=== PATIENT | female | born 1945 | race Caucasian/White ===

== ENCOUNTER 2019-12-13 09:00 | Inpatient (IN) | payer MEDICARE, BC ==
--- NOTE | 2019-12-13 10:01 | PCM.HP.2 ---
H&P History of Present Illness - General Date of Service: 12/13/19 Admit Problem/Dx: Admission Diagnosis/Problem Admission Diagnosis/Problem Pain and swelling of right lower leg - History of Present Illness Initial Comments - Free Text/Narative: June is admitted on 12/13/2019 to inpatient status after being evaluated in the clinic for extreme RLE pain and swelling and inability to bear weight. She did fall on 11/28/2019 and had some hip pain, however x-ray was negative and her foot and ankle were not bothering her at that time. She notes that 2 days ago she had what felt like a severe bull horse in her right foot "that went from my toes to my ankle and up here" and she points to her lateral lower right leg. She tried using lidocaine cream and Blue Emu oil on it in additional to her hydrocodone for her chronic back pain as well as ibuprofen and nothing helped. It is currently so painful she is not even able to bear weight on the right foot. She arrived to the clinic in a wheelchair. She does not recall any injury to the ankle after her fall in November. She does have a remote hx of gout. She has peripheral neuropathy but states this feels much different than that. She had been drinking a lot of water in the event she was dehydrated and that did not help. The pain is a sharp pain. Her is about to go to [facility] for his 96 hour continues chemotherapy infusion and she states "I can't be at home alone". Her children are wondering about ruling out a DVT. Right Lower Leg Pain Score (Numeric/FACES): 7 - Related Data Allergies/Adverse Reactions: Allergies Allergy/AdvReac Type Severity Reaction Status Date / Time clindamycin Allergy Rash Verified 12/13/19 12:55 Penicillins Allergy Cannot Verified 12/13/19 12:55 Remember oxycodone AdvReac Mild Dizziness Verified 12/13/19 12:55 Home Medications: Home Meds Albuterol [Proventil HFA] 2 puff INH Q4H PRN 09/04/13 [History] Aspirin [Mimi Chewable] 81 mg PO DAILY 09/04/13 [History] Baclofen 10 mg PO TID PRN 09/04/13 [History] Clopidogrel Bisulfate [Clopidogrel] 75 mg PO BEDTIME 09/04/13 [History] Lactobacillus 3/Fos/Pantethine [Probiotic & Acidophilus] 2 cap PO DAILY 09/04/13 [History] Losartan/Hydrochlorothiazide [Losartan-HCTZ 100-12.5 MG] 1 each PO DAILY 09/04/13 [History] Polyvinyl Alcohol/Povidone [Refresh Eye Drops] 1 each EYEBOTH Q6HR PRN 09/04/13 [History] metFORMIN [Glucophage] 500 mg PO BIDAC 09/04/13 [History] Acetaminophen/HYDROcodone [Baldwin 325-10 MG] 1 tab PO Q6H PRN #30 tablet 05/18/14 [Rx] Budesonide/Formoterol Fumarate [Symbicort 160-4.5 Mcg Inhaler] 2 puff INH BID 12/13/19 [History] Cyanocobalamin (Vitamin B12) [Vitamin B12] 1 tab PO DAILY 12/13/19 [History] Cyclobenzaprine HCl 10 mg PO TID PRN 12/13/19 [History] Fluticasone Propionate [Flonase Allergy Relief] 2 sprays NASBOTH BID PRN 12/13/19 [History] Furosemide [Lasix] 20 mg PO BID PRN 12/13/19 [History] Gabapentin [Neurontin] 300 mg PO TID 12/13/19 [History] Levothyroxine Sodium [Synthroid] 25 mcg PO ACBREAKFAST 12/13/19 [History] Montelukast [Singulair] 1 tab PO BEDTIME 12/13/19 [History] atorvaSTATin Calcium [Atorvastatin Calcium] 40 mg PO BEDTIME 12/13/19 [History] Past Medical History Respiratory History: Reports: Asthma, COPD Gastrointestinal History: Reports: Other (See Below) (Colostomy) Musculoskeletal History: Reports: Back Pain, Chronic Neurological History: Reports: Neuropathy, Peripheral, Other (See Below) (Neuralgia of abdomen) Endocrine/Metabolic History: Reports: Diabetes, Type II, Hypothyroidism - Past Surgical History Female Surgical History: Reports: Hysterectomy Musculoskeletal Surgical History: Reports: Knee Replacement Other Musculoskeletal Surgeries/Procedures:: L knee H&P Review of Systems - Review of Systems: Review Of Systems: Comprehensive ROS is negative, except as noted in HPI. Exam - Exam Exam: See Below - Exam Quality Assessment: Supplemental Oxygen General: Alert, Oriented, Cooperative, Moderate Distress Lungs: Clear to Auscultation, Normal Respiratory Effort Cardiovascular: Regular Rate, Regular Rhythm GI/Abdominal Exam: Normal Bowel Sounds Extremities: Other (She is exquisitely tender over the top of her foot with even mild palpation, more so over the lateral aspect of the foot. She has swelling of her foot and ankle on the right compared to the left. No erythema or warmth.) - Patient Data Lab Results Last 24 hrs: Laboratory Results - last 24 hr 12/13/19 Range/Units 09:25 WBC 6.11 (5.00-10.00) 10^3/uL RBC 4.85 (3.80-5.50) 10^6/uL Hgb 15.4 D (12.0-16.0) g/dL Hct 46.3 (37.0-47.0) % MCV 95.5 H D (82.0-92.0) fL MCH 31.8 H (27.0-31.0) pg MCHC 33.3 (32.0-36.0) g/dL RDW 12.1 (11.5-14.5) % Plt Count 218 (150-400) 10^3/uL MPV 9.5 (7.4-10.4) fL Immature Gran % (Auto) 0.2 (0.0-5.0) % Neut % (Auto) 58.1 (50.0-70.0) % Lymph % (Auto) 31.6 (20.0-40.0) % [place] % (Auto) 8.3 H (2.0-8.0) % Eos % (Auto) 1.3 (1.0-3.0) % Baso % (Auto) 0.5 (0.0-1.0) % Neut # (Auto) 3.55 (2.50-7.00) 10^3/uL Lymph # (Auto) 1.93 (1.00-4.00) 10^3/uL [place] # (Auto) 0.51 (0.10-0.80) 10^3/uL Eos # (Auto) 0.08 L (0.10-0.30) 10^3/uL Baso # (Auto) 0.03 (0.00-0.10) 10^3/uL Immature Gran # (Auto) 0.01 (0.00-0.50) 10^3/uL Result Diagrams: 12/13/19 09:25 12/13/19 09:25 Problem List Initiated/Reviewed/Updated: Yes Orders Last 24hrs: Active Orders 24 hr Category Date Time Status Patient Status [ADT] Routine ADT 12/13/19 09:51 Active Blood Glucose Check, Bedside [RC] BIDMEALS Care 12/13/19 09:51 Active Oxygen Therapy [RC] PRN Care 12/13/19 09:51 Active Up With Assistance [RC] ASDIRECTED Care 12/13/19 09:51 Active VTE/DVT Education [RC] PER UNIT ROUTINE Care 12/13/19 09:51 Active Vital Signs [RC] Q4H Care 12/13/19 09:51 Active [place] [employer] Diet [DIET] Diet 12/13/19 Lunch Active Ankle Min 3V Rt [CR] Routine Exams 12/13/19 Ordered Foot Comp Min 3V Rt [CR] Routine Exams 12/13/19 Ordered C-REACTIVE PROTEIN [CHEM] Routine Lab 12/13/19 09:25 Received COMPREHENSIVE METABOLIC PN,CMP [CHEM] Routine Lab 12/13/19 09:25 Received MAGNESIUM [CHEM] Routine Lab 12/13/19 09:25 Received SED RATE [REF] Routine Lab 12/13/19 09:25 Received URIC ACID [CHEM] Routine Lab 12/13/19 09:25 Received Enoxaparin [Lovenox] Med 12/13/19 10:00 Ordered 40 mg SUBCUT DAILY Morphine Med 12/13/19 09:51 Active 2 mg IVPUSH Q2H PRN methylPREDNISolone Sod Succ [Solu-MEDROL] Med 12/13/19 10:00 Active 80 mg IVPUSH Q8H Resuscitation Status Routine Resus Stat 12/13/19 09:51 Ordered Medication Orders Enoxaparin Sodium (Lovenox) 40 mg SUBCUT DAILY KESHIA Methylprednisolone Sodium Succinate (Solu-Medrol) 80 mg IVPUSH Q8H KESHIA Morphine Sulfate (Morphine) 2 mg IVPUSH Q2H PRN PRN Reason: Pain (severe 7-10) Assessment/Plan Comment:: Assessment/Plan: Admission diagnosis: Severe pain and swelling of the right lower extremity, primarily involving the right foot and ankle - x-ray of the R foot - x-ray of the right ankle - venous doppler U/S RLE to rule out DVT - Morphine 2 mg IV q 2 hours PRN pain as oral hydrocodone is not helping - solumedrol 80 mg IV TID Elevated uric acid level at 8.0 with hx of gout in the past - solumedrol as noted above - start allopurinol 100 mg PO daily Elevated CRP - 8.1 on 12/13/2019 - Steroids as noted above, will monitor daily Hypomagnesemia - Magnesium sulfate 2 gram IV 12/12 - recheck magnesium level on 12/13 Secondary Diagnoses: Asthma - Continue Symbicort 160-4.5 mcg/ACT, 2 puffs BID Chronic back pain - Continue hydrocodone/APAP 10/325 mg tabs 1 tab PO q 6 hours PRN pain COPD - Continue Symbicort as above - Continue O2 at 2L/nc to keep sate >90% Colostomy status DM2 - Continue metformin ER 500 mg PO BID - BID accuchecks - Will initiate sliding scale insulin if BG's elevate due to steroid use - A1C was 5.7 12/13/2019 Gait instability - Continue with walker as tolerated with weight bearing - Up with assistance Hx Gout - Uric acid level Hyperlipidemia - Continue atorvastatin 40 mg PO daily HTN - Continue HCTZ 12.5 mg PO daily - Continue losartan 100 mg PO daily - BP's elevated currently, likely secondary to pain Hypothyroidism - Continue levothyroxine 25 mcg PO daily Neuralgia - Lidocaine 4% cream topically to affected areas TID PRN Neuropathy - Continue gabapentin 300 mg PO TID RODRIGO Peripheral edema - Continue furosemide 20 mg PO BID PRN Muscle spasm - Continue cyclobenzaprine 10 mg PO tID PRN Seasonal allergies - Continue Singulair 10 mg PO qhs - Continue fluticasone 50 mg/ACT 2 [place] in each nostril twice daily Vit B12 deficiency - Continue B12 100 mct PO daily Continue ASA 81 mg PO daily Continue plavix 75 mg PO daily CODE STATUS: DNR/DNI, discussed with patient DVT prophylaxis: Enoxaparin 40 mg subcut daily - Mortality Measure Prognosis:: Good
[2019-12-13 10:04] LABS: HEMOGLOBIN A1C 5.7 % (4.3-5.7)
[2019-12-13 10:26] LABS: ANION GAP 9.6 mmol/L (5-15)
[2019-12-13] MEDS: Enoxaparin 40 MG/0.4 ML Syringe SUBCUT SCH (10:55)
[2019-12-13] MEDS: methylPREDNISolone Sodium Succinate 125 MG/2 ML SDV IVPUSH SCH ×2 (10:57→18:07)
[2019-12-13] MEDS ORDERED: Magnesium Sulfate/Water 2 GM in Premix Bag 1 BAG IV ONE (11:06)
[2019-12-13] MEDS ORDERED: Sodium Chloride 0.9% 100 ML IV SCH (11:15)
[2019-12-13] MEDS: Allopurinol 100 MG Tab PO SCH (11:49)
[2019-12-13] MEDS: Morphine 2 MG/ML SYRINGE IVPUSH PRN ×3 (11:50→21:08)
[2019-12-13] MEDS ORDERED: Carboxymethylcellulose Sodium 0.5% Ophth Soln 15 ML Bottle EYEBOTH PRN (16:32)
[2019-12-13] MEDS ORDERED: Fluticasone Propionate Nasal Spray 16 GM Bottle NASBOTH PRN (16:32)
[2019-12-13] MEDS ORDERED: Cyclobenzaprine 10 MG Tab PO PRN (16:32)
[2019-12-13] MEDS ORDERED: Furosemide 20 MG Tab PO PRN (16:32)
[2019-12-13] MEDS ORDERED: Albuterol 8 GM Inhaler INH PRN (16:32)
[2019-12-13] MEDS: metFORMIN 500 MG Tab PO SCH (18:07)
[2019-12-13] MEDS: Clopidogrel 75 MG Tab PO SCH (21:01)
[2019-12-13] MEDS: atorvaSTATin 40 MG Tab PO SCH (21:01)
[2019-12-13] MEDS: Formoterol/Mometasone 200-5 MCG 8.8 GM Inhaler IH SCH (21:01)
[2019-12-13] MEDS: Gabapentin 300 MG Cap PO SCH (21:01)
[2019-12-13] MEDS: Montelukast 10 MG Tab PO SCH (21:01)
[2019-12-14] MEDS: methylPREDNISolone Sodium Succinate 125 MG/2 ML SDV IVPUSH SCH ×3 (01:49→17:58)
[2019-12-14] MEDS: metFORMIN 500 MG Tab PO SCH ×2 (07:44→17:58)
[2019-12-14] MEDS: Levothyroxine 25 MCG Tab PO SCH (07:44)
[2019-12-14] MEDS: Allopurinol 100 MG Tab PO SCH (08:16)
[2019-12-14] MEDS: Aspirin 81 MG Tab.EC PO SCH (08:16)
[2019-12-14] MEDS: Gabapentin 300 MG Cap PO SCH ×3 (08:16→21:30)
[2019-12-14] MEDS: Losartan 50 MG Tab PO SCH (08:16)
[2019-12-14] MEDS: Hydrochlorothiazide 12.5 MG Cap PO SCH (08:17)
[2019-12-14] MEDS: Lactobacillus Rhamnosus GG (Probiotic) Cap PO SCH (08:17)
[2019-12-14] MEDS: Enoxaparin 40 MG/0.4 ML Syringe SUBCUT SCH (08:19)
[2019-12-14 08:22] LABS: ANION GAP 14.4 mmol/L (5-15); CHLORIDE,CL 97 mmol/L (98-115); SODIUM,NA 138 mmol/L (136-145)
[2019-12-14] MEDS: Formoterol/Mometasone 200-5 MCG 8.8 GM Inhaler IH SCH ×2 (08:34→21:29)
[2019-12-14] MEDS ORDERED: CYANOCOBALAMIN PO SCH (09:00)
--- NOTE | 2019-12-14 11:54 | PN ---
PATIENT NAME: ERICA DEXTER HISTORY OF PRESENT ILLNESS: This is a 74-year-old female who was admitted yesterday to inpatient care due to pain and swelling of her right lower extremity. X-rays were performed which were negative. She did have a venous Doppler ultrasound of the right lower extremity to rule out DVT, which was negative. She has received Solu-Medrol 80 mg IV t.i.d. and morphine for pain. She did have an elevated uric acid level at 8.0 and was started on allopurinol yesterday. CRP was 8.1 on 12/13/2019. She does have hypomagnesemia and was given 2 g of IV magnesium yesterday. The patient states she is feeling much better. The swelling has gone down, however, she still does have some residual swelling of her right lower extremity. LAB WORK: Today, shows a white count of 14,000, normal yesterday. She does have a bit of a left shift. This may be related to the steroids. Her magnesium is normal today at 1.9. C-reactive protein has gone from 8.1 to 10.9. PHYSICAL EXAMINATION: VITAL SIGNS: She is afebrile. Pulse 72, respirations 18, blood pressure is 143/72. SKIN: Warm and dry to touch. HEART AND LUNGS: Normal. She does have mild swelling and exquisite tenderness over the dorsal aspect of her right foot. I did not see the foot yesterday, however, the patient reports it has improved. IMPRESSION AND PLAN: 1. Severe pain and swelling of the right lower extremity, primarily involving the right foot and ankle. X-rays were negative. On admission, venous ultrasound was negative for deep vein thrombosis. She did receive Solu- Medrol 80 mg IV t.i.d. and will continue on the same. She will continue morphine 2 mg IV every 2 hours as needed for pain. 2. Elevated uric acid level, now on allopurinol. 3. Elevated CRP. This has gone up a little bit today and steroids will continue. 4. Hypomagnesemia. Her magnesium is normal today. 5. Asthma, on Symbicort. 6. Chronic low back pain. Continue hydrocodone. 7. Chronic obstructive pulmonary disease. Continue Symbicort and O2 at 2 L per nasal cannula to keep saturations greater than 90%. 8. Colostomy status. 9. Diabetes mellitus type 2, on metformin. We will continue b.i.d. Accu- Cheks. A1c was 5.7 on 12/13/2019. 10.Gait instability. Continue with walker. 11.Hyperlipidemia, continue atorvastatin. 12.Hypertension, on a combination of HCTZ, losartan. 13.Hypothyroidism, on thyroid replacement. 14.Neuralgia, using lidocaine cream. 15.Neuropathy. Continue gabapentin. 16.Peripheral edema. Continue furosemide. 17.Muscle spasm. Continue cyclobenzaprine. 18.Seasonal allergies. Continue Singulair and fluticasone. 19.Vitamin B12 deficiency. Continue oral vitamin B12, continue baby aspirin and Plavix. 20.Code status: DNR/DNI. Documentation was completed today. 21.Deep venous thrombosis prophylaxis, on enoxaparin 40 mg subcu daily. I have updated her PCP, Dr. Loreto Mcnair, regarding her progress. /[id number]/MODL
[2019-12-14] MEDS: Acetaminophen/HYDROcodone 325-10 MG Tab PO PRN ×2 (14:12→21:30)
[2019-12-14] MEDS: atorvaSTATin 40 MG Tab PO SCH (21:30)
[2019-12-14] MEDS: Montelukast 10 MG Tab PO SCH (21:30)
[2019-12-14] MEDS: Clopidogrel 75 MG Tab PO SCH (21:30)
[2019-12-15] MEDS: methylPREDNISolone Sodium Succinate 125 MG/2 ML SDV IVPUSH SCH ×2 (02:26→09:57)
[2019-12-15] MEDS: metFORMIN 500 MG Tab PO SCH (07:17)
[2019-12-15] MEDS: Levothyroxine 25 MCG Tab PO SCH (07:17)
[2019-12-15 07:53] LABS: ANION GAP 9.8 mmol/L (5-15); CHLORIDE,CL 99 mmol/L (98-115); SODIUM,NA 137 mmol/L (136-145)
[2019-12-15] MEDS: Lactobacillus Rhamnosus GG (Probiotic) Cap PO SCH (08:30)
[2019-12-15] MEDS: Gabapentin 300 MG Cap PO SCH (08:30)
[2019-12-15] MEDS: Allopurinol 100 MG Tab PO SCH (08:30)
[2019-12-15] MEDS: Enoxaparin 40 MG/0.4 ML Syringe SUBCUT SCH (08:31)
[2019-12-15] MEDS: Aspirin 81 MG Tab.EC PO SCH (08:31)
[2019-12-15] MEDS: Hydrochlorothiazide 12.5 MG Cap PO SCH (08:32)
[2019-12-15] MEDS: Losartan 50 MG Tab PO SCH (08:32)
[2019-12-15] MEDS: Formoterol/Mometasone 200-5 MCG 8.8 GM Inhaler IH SCH (08:35)
--- NOTE | 2019-12-15 08:49 | PCM.DCSUM1 ---
Discharge Summary - Hospital Course Free Text/Narrative:: Admission Date: 12/13/2019 Discharge Date: 12/15/2019 Admission diagnoses: Severe pain and swelling of the right lower extremity, primarily involving the right foot and ankle, likely an acute gout attack - x-ray of the R foot, negative - x-ray of the right ankle, negative - venous doppler U/S RLE to rule out DVT, negative - Morphine 2 mg IV q 2 hours PRN pain she only required 2 doses, outpatient hydrocodone is currently controlling her pain - solumedrol 80 mg IV TID while inpatient, she will be discharged on prednisone 40 mg x 3 days, 20 mg x 3 days, 10 mg x 3 days, 5 mg x 3 days then off. Elevated uric acid level at 8.0 with hx of gout in the past - solumedrol as noted above - started allopurinol 100 mg PO daily, will be discharged on this and repeat uric acid level in 2 weeks Elevated CRP, improving - 8.1 on 12/13/2019, down to 4.5 at discharge, likely related to underlying inflammatory process that is now improving Hypomagnesemia, resolved - Magnesium sulfate 2 gram IV 12/12, magnesium 1.8 at discharge, no supplementation at this time, will monitor as an outpatient Secondary Diagnoses: Steroid induced leukocytosis - will check CBC in 2 weeks Asthma - Continue Symbicort 160-4.5 mcg/ACT, 2 puffs BID Chronic back pain - Continue hydrocodone/APAP 10/325 mg tabs 1 tab PO q 6 hours PRN pain COPD - Continue Symbicort as above - Continue O2 at 2L/nc to keep sate >90% Colostomy status DM2 - Continue metformin ER 500 mg PO BID - A1C was 5.7 12/13/2019 Gait instability - Continue with walker as tolerated with weight bearing Hx Gout - Uric acid level elevated, discharging on allopurinol 100 mg PO daily Hyperlipidemia - Continue atorvastatin 40 mg PO daily HTN - Continue HCTZ 12.5 mg PO daily - Continue losartan 100 mg PO daily Hypothyroidism - Continue levothyroxine 25 mcg PO daily Neuralgia - Lidocaine 4% cream topically to affected areas TID PRN Neuropathy - Continue gabapentin 300 mg PO TID RODRIGO Peripheral edema - Continue furosemide 20 mg PO BID PRN Muscle spasm - Continue cyclobenzaprine 10 mg PO TID PRN Seasonal allergies - Continue Singulair 10 mg PO qhs - Continue fluticasone 50 mg/ACT 2 [place] in each nostril twice daily Vit B12 deficiency - Continue B12 100 mct PO daily Continue ASA 81 mg PO daily Continue plavix 75 mg PO daily CODE STATUS: DNR/DNI, discussed with patient New Medications at Discharge: Prednisone taper as noted above, this will be sent through her clinic chart to [facility]. Allopurinol 100 mg PO daily Follow-up with Dr. Mcnair in clinic in 2 weeks. Hospital Course: June was admitted on 12/13/2019 to inpatient status after being evaluated in the clinic for extreme RLE pain and swelling and inability to bear weight. She did fall on 11/28/2019 and had some hip pain, however x-ray was negative and her foot and ankle were not bothering her at that time. She notes that 2 days ago she had what felt like a severe bull horse in her right foot "that went from my toes to my ankle and up here" and she points to her lateral lower right leg. She tried using lidocaine cream and Blue Emu oil on it in additional to her hydrocodone for her chronic back pain as well as ibuprofen and nothing helped. It is currently so painful she is not even able to bear weight on the right foot. She arrived to the clinic in a wheelchair. She does not recall any injury to the ankle after her fall in November. She does have a remote hx of gout. She has peripheral neuropathy but states this feels much different than that. She had been drinking a lot of water in the event she was dehydrated and that did not help. The pain is a sharp pain. Her was about to go to [place] for his 96 hour continues chemotherapy infusion and she states "I can't be at home alone". Labs indicated an elevated uric acid level. It is felt that her pain was related to an acute gout attack. CRP was elevated at 8.1, peaked at 10 and at discharge is 4.5. Solumedrol 80 mg IV TID was initiated as well as morphine for pain control. She required 2 doses of morphine but then states "I started to get a little goofy so thought I better back off of that". She was started on allopurinol 100 mg PO daily and will repeat uric acid level in 2 weeks. She did develop a steroid induced leukocytosis and her CBC will be checked in 2 weeks. She will be discharged on a prednisone taper. She is able to bear weight, she has some minimal residual pain on the top of her foot on the right. The swelling is nearly gone from her foot and ankle. She is ambulatory with her walker and feels safe to discharge to home and has her daughter from [place] in [facility] who will be staying with her until her Angel is done with his chemotherapy. Diagnosis: Stroke: No Modified Med Scale: No Signif.Disability Despite Sympt.Able to Carry Out Usual Act./Duties Modified [place] Scale Score: 1 - Discharge Data Discharge Date: 12/15/19 Discharge Disposition: Home, Self-Care 01 Condition: Good - Referral to Home Health Primary Care Physician: Loreto Perez MD - Patient Summary/Data Recommended Follow-up Testing/Procedures: Follow-up with Dr. Mcnair in 2 weeks and will get CBC, BMP and uric acid level. New Medications at discharge: Prednisone 40 mg daily x 3 days, then 20 mg daily x 3 days, then 10 mg daily x 3 days then 5 mg daily x 3 days Allopurinol 100 mg daily - Patient Instructions Diet: Diabetic Diet Activity: As Tolerated - Discharge Plan *PRESCRIPTION DRUG MONITORING PROGRAM REVIEWED*: No *COPY OF PRESCRIPTION DRUG MONITORING REPORT IN PATIENT JALEEL: No Prescriptions/Med Rec: allopurinoL [Zyloprim] 100 mg PO DAILY #30 tablet Home Medications: Home Meds Albuterol [Proventil HFA] 2 puff INH Q4H PRN 09/04/13 [History] Aspirin [Mimi Chewable Aspirin] 81 mg PO DAILY 09/04/13 [History] Clopidogrel Bisulfate [Clopidogrel] 75 mg PO BEDTIME 09/04/13 [History] Lactobacillus 3/Fos/Pantethine [Probiotic & Acidophilus] 2 cap PO DAILY 09/04/13 [History] Losartan/Hydrochlorothiazide [Losartan-HCTZ 100-12.5 MG] 1 each PO DAILY 09/04/13 [History] Polyvinyl Alcohol/Povidone [Refresh] 1 each EYEBOTH Q6HR PRN 09/04/13 [History] metFORMIN [Glucophage] 500 mg PO BIDAC 09/04/13 [History] Acetaminophen/HYDROcodone [[place] 325-10 MG] 1 tab PO Q6H PRN #30 tablet 02/06/15 [Rx] Budesonide/Formoterol Fumarate [Symbicort 160-4.5 Mcg Inhaler] 2 puff INH BID 12/13/19 [History] Cyanocobalamin (Vitamin B12) [Vitamin B12] 1 tab PO DAILY 12/13/19 [History] Cyclobenzaprine HCl 10 mg PO TID PRN 12/13/19 [History] Fluticasone Propionate [Flonase Allergy Relief] 2 sprays NASBOTH BID PRN 12/13/19 [History] Furosemide [Lasix] 20 mg PO BID PRN 12/13/19 [History] Gabapentin [Neurontin] 300 mg PO TID 12/13/19 [History] Levothyroxine Sodium [Synthroid] 25 mcg PO ACBREAKFAST 12/13/19 [History] Montelukast [Singulair] 1 tab PO BEDTIME 12/13/19 [History] atorvaSTATin Calcium [Atorvastatin Calcium] 40 mg PO BEDTIME 12/13/19 [History] allopurinoL [Zyloprim] 100 mg PO DAILY #30 tablet 12/15/19 [Rx] - Discharge Summary/Plan Comment DC Time >30 min.: No - General Info Date of Service: 12/15/19 Admission Dx/Problem (Free Text: Admission Diagnosis/Problem Admission Diagnosis/Problem Pain and swelling of right lower leg - Patient Data Vitals - Most Recent: Last Vital Signs Temp 98.6 F 12/15/19 06:26 Pulse 75 12/15/19 06:26 Resp 18 12/15/19 06:26 BP 150/60 H 12/15/19 08:32 Pulse Ox 95 12/15/19 06:26 Weight - Most Recent: 220 lb 11.2 oz I&O - Last 24 hours: Intake & Output 12/14/19 12/15/19 12/15/19 22:59 06:59 14:59 Intake Total 640 50 Balance 640 50 Lab Results - Last 24 hrs: Laboratory Results - last 24 hr 12/14/19 12/15/19 12/15/19 Range/Units 17:57 07:07 07:08 WBC 20.37 H (5.00-10.00) 10^3/uL RBC 4.21 (3.80-5.50) 10^6/uL Hgb 11.7 L (12.0-16.0) g/dL Hct 36.9 L (37.0-47.0) % MCV 87.6 (82.0-92.0) fL MCH 27.8 (27.0-31.0) pg MCHC 31.7 L (32.0-36.0) g/dL RDW 13.7 (11.5-14.5) % Plt Count 279 (150-400) 10^3/uL MPV 11.9 H (7.4-10.4) fL Add Manual Diff Yes Neutrophils % (Manual) 97 H (50-70) % Lymphocytes % (Manual) 2 L (20-40) % Monocytes % (Manual) 1 L (2-8) % Absolute Neutrophils 19.7589 Lymphocytes # (Manual) 0.4074 Monocytes # (Manual) 0.2037 Giant Platelets Occasional Sodium (136-145) mmol/L Potassium (3.3-5.3) mmol/L Chloride (98-115) mmol/L Carbon Dioxide (21.0-32.0) mmol/L Anion Gap (5-15) mmol/L BUN (6-25) mg/dL Creatinine (0.51-1.17) mg/dL Est Cr Clr Drug Dosing mL/min Estimated GFR (MDRD) mL/min Glucose (75 - 99) mg/dL POC Glucose 229 H 211 H (74-106) mg/dl Calcium (8.7-10.3) mg/dL Magnesium (1.8-2.4) mg/dL C-Reactive Protein (0.0-0.9) mg/dL 12/15/19 Range/Units 07:08 WBC (5.00-10.00) 10^3/uL RBC (3.80-5.50) 10^6/uL Hgb (12.0-16.0) g/dL Hct (37.0-47.0) % MCV (82.0-92.0) fL MCH (27.0-31.0) pg MCHC (32.0-36.0) g/dL RDW (11.5-14.5) % Plt Count (150-400) 10^3/uL MPV (7.4-10.4) fL Add Manual Diff Neutrophils % (Manual) (50-70) % Lymphocytes % (Manual) (20-40) % Monocytes % (Manual) (2-8) % Absolute Neutrophils Lymphocytes # (Manual) Monocytes # (Manual) Giant Platelets Sodium 137 (136-145) mmol/L Potassium 3.3 (3.3-5.3) mmol/L Chloride 99 (98-115) mmol/L Carbon Dioxide 31.5 (21.0-32.0) mmol/L Anion Gap 9.8 (5-15) mmol/L BUN 27 H (6-25) mg/dL Creatinine 0.83 (0.51-1.17) mg/dL Est Cr Clr Drug Dosing 45.55 mL/min Estimated GFR (MDRD) > 60 mL/min Glucose 224 H (75 - 99) mg/dL POC Glucose (74-106) mg/dl Calcium 8.7 (8.7-10.3) mg/dL Magnesium 1.8 (1.8-2.4) mg/dL C-Reactive Protein 4.5 H (0.0-0.9) mg/dL Med Orders - Current: Current Medications Hydrocodone Bitart/Acetaminophen ([place] 325-10 Mg) 1 tab PO Q6H PRN PRN Reason: Pain Last Admin: 12/14/19 21:30 Dose: 1 tab Documented by: Albuterol (Ventolin Hfa) 0 gm INH Q4H PRN PRN Reason: Shortness of Breath Allopurinol (Zyloprim) 100 mg PO DAILY [facility] Last Admin: 12/15/19 08:30 Dose: 100 mg Documented by: Artificial Tears (Refresh Tears 0.5%) 0 ml EYEBOTH Q6H PRN PRN Reason: Dry Eyes Aspirin (Halfprin) 81 mg PO DAILY [facility] Last Admin: 12/15/19 08:31 Dose: 81 mg Documented by: Atorvastatin Calcium (Lipitor) 40 mg PO BEDTIME [facility] Last Admin: 12/14/19 21:30 Dose: 40 mg Documented by: Clopidogrel Bisulfate (Plavix) 75 mg PO BEDTIME [facility] Last Admin: 12/14/19 21:30 Dose: 75 mg Documented by: Cyclobenzaprine HCl (Flexeril) 10 mg PO TID PRN PRN Reason: Spasms Enoxaparin Sodium (Lovenox) 40 mg SUBCUT DAILY [facility] Last Admin: 12/15/19 08:31 Dose: 40 mg Documented by: Fluticasone Propionate (Flonase) 0 gm NASBOTH BID PRN PRN Reason: Congestion Furosemide (Lasix) 20 mg PO BID PRN PRN Reason: Other Last Admin: 12/14/19 21:37 Dose: 20 mg Documented by: Gabapentin (Neurontin) 300 mg PO TID [facility] Last Admin: 12/15/19 08:30 Dose: 300 mg Documented by: Hydrochlorothiazide (Hydrochlorothiazide) 12.5 mg PO DAILY [facility] Last Admin: 12/15/19 08:32 Dose: 12.5 mg Documented by: Sodium Chloride (Normal Saline) 100 mls @ 100 mls/hr IV ASDIRECTED [facility] Last Admin: 12/13/19 11:54 Dose: 100 mls/hr Documented by: Lactobacillus Rhamnosus (Culturelle) 2 cap PO DAILY [facility] Last Admin: 12/15/19 08:30 Dose: 2 cap Documented by: Levothyroxine Sodium (Levothyroxine) 25 mcg PO ACBREAKFAST [facility] Last Admin: 12/15/19 07:17 Dose: 25 mcg Documented by: Losartan Potassium (Cozaar) 100 mg PO DAILY [facility] Last Admin: 12/15/19 08:32 Dose: 100 mg Documented by: Metformin HCl (Glucophage) 500 mg PO BIDAC [facility] Last Admin: 12/15/19 07:17 Dose: 500 mg Documented by: Methylprednisolone Sodium Succinate (Solu-Medrol) 80 mg IVPUSH Q8H [facility] Last Admin: 12/15/19 02:26 Dose: 80 mg Documented by: Mometasone Furoate/Formoterol Fumar (Dulera 200-5 Mcg) 0 puff IH BID [facility] Last Admin: 12/15/19 08:35 Dose: 2 inhalation Documented by: Montelukast Sodium (Singulair) 10 mg PO BEDTIME [facility] Last Admin: 12/14/19 21:30 Dose: 10 mg Documented by: Morphine Sulfate (Morphine) 2 mg IVPUSH Q2H PRN PRN Reason: Pain (severe 7-10) Last Admin: 12/13/19 21:08 Dose: 2 mg Documented by: Non-Formulary Medication (Cyanocobalamin (Vitamin B12) [Vitamin B12]) 1 tab PO DAILY [facility] Discontinued Medications Magnesium Sulfate 2 gm/ Premix 50 mls @ 200 mls/hr IV ONETIME ONE Stop: 12/13/19 11:20 Last Admin: 12/13/19 11:57 Dose: 200 mls/hr Documented by: - Exam Quality Assessment: Reports: Supplemental Oxygen General: Reports: Alert, Oriented, Cooperative, No Acute Distress Lungs: Reports: Clear to Auscultation, Normal Respiratory Effort Cardiovascular: Reports: Regular Rate, Regular Rhythm GI/Abdominal Exam: Normal Bowel Sounds Extremities: Pedal Edema (Stable edema, right foot and ankle with marked improvemend in edema.)
[2019-12-15 11:15] VITALS: BP 151/65; PULSE 89
== END 2019-12-15 11:30 | disposition home or self-care (01) | DRG 554 ==
LOC: KA.OC 09:00 → KA.MS 09:05
PROVIDERS: ADMIT Internal Medicine; ATTEND Internal Medicine
DX: M10.9 Gout, unspecified (principal); E83.42 Hypomagnesemia; R26.9 Unspecified abnormalities of gait and mobility; E78.5 Hyperlipidemia, unspecified; Z20.828 Contact with and (suspected) exposure to other viral communicable diseases; Z66 Do not resuscitate; E11.42 Type 2 diabetes mellitus with diabetic polyneuropathy; E03.9 Hypothyroidism, unspecified; I10 Essential (primary) hypertension; M79.2 Neuralgia and neuritis, unspecified; D72.829 Elevated white blood cell count, unspecified; T38.0X5A Adverse effect of glucocorticoids and synthetic analogues, initial encounter; G47.33 Obstructive sleep apnea (adult) (pediatric); R60.0 Localized edema; M62.838 Other muscle spasm; E53.8 Deficiency of other specified B group vitamins; J44.9 Chronic obstructive pulmonary disease, unspecified; Z96.659 Presence of unspecified artificial knee joint; M54.5 Low back pain; G89.29 Other chronic pain; J30.2 Other seasonal allergic rhinitis; Z79.82 Long term (current) use of aspirin; Z79.84 Long term (current) use of oral hypoglycemic drugs; Z79.899 Other long term (current) drug therapy; Z79.890 Hormone replacement therapy; Z88.1 Allergy status to other antibiotic agents; Z88.0 Allergy status to penicillin; Z88.5 Allergy status to narcotic agent; Z90.710 Acquired absence of both cervix and uterus; Z93.3 Colostomy status
CPT/HCPCS: 36415; 73610-RT; 73630-RT; 80048; 80053; 82962; 83036; 83605; 83735; 84550; 85025; 85652; 86140; 93971; 94640; A9270-GY; J1650; J2270; J2930; J3475; J7050; U0002

== ENCOUNTER 2021-09-18 09:08 | Emergency (ER) | payer MEDICARE ==
[2021-09-18 09:57] LABS: ANION GAP 13.4 mmol/L (5-15); CHLORIDE,CL 97 mmol/L (98-107); SODIUM,NA 139 mmol/L (136-145)
[2021-09-18 10:02] LABS: ESTIMATED GFR > 60 mL/min
[2021-09-18] MEDS: Sodium Chloride 0.9% 1,000 ML ONE (10:09)
[2021-09-18] MEDS: Sodium Chloride 0.9% 1,000 ML IV ONE (10:09)
[2021-09-18] MEDS ORDERED: Iopamidol 755 Mg/ML 75 ML Bottle IVPUSH ONE (10:57)
[2021-09-18] MEDS ORDERED: Sodium Chloride 0.9% 50 ML IV SCH (11:00)
[2021-09-18] MEDS: Ciprofloxacin in D5W 400 MG in Premix Bag 1 BAG IV ONE ×2 (11:04)
[2021-09-18 11:12] VITALS: BP 177/81; PULSE 67
== END 2021-09-18 12:00 ==
LOC: KA.ED 09:08
DX: K92.1 Melena (principal); K81.0 Acute cholecystitis; K43.5 Parastomal hernia without obstruction or gangrene; K27.0 Acute peptic ulcer, site unspecified, with hemorrhage; D72.829 Elevated white blood cell count, unspecified; R63.0 Anorexia; J44.9 Chronic obstructive pulmonary disease, unspecified; E03.9 Hypothyroidism, unspecified; E11.9 Type 2 diabetes mellitus without complications; Z79.899 Other long term (current) drug therapy; Z79.82 Long term (current) use of aspirin; Z79.84 Long term (current) use of oral hypoglycemic drugs; Z88.1 Allergy status to other antibiotic agents; Z88.0 Allergy status to penicillin; Z88.5 Allergy status to narcotic agent; Z88.8 Allergy status to other drugs, medicaments and biological substances
CPT/HCPCS: 36415; 74177; 80053; 81001; 82270; 85025; 87040; 87086; 87088; 87186; 96361; 96365; 99284; 99285-25; J0744; J7030; Q9967

== ENCOUNTER 2021-09-23 09:33 | Inpatient (IN) | payer MEDICARE ==
[2021-09-23] MEDS ORDERED: Ondansetron 4 MG Tab.DIS PO PRN (15:21)
[2021-09-23] MEDS ORDERED: Albuterol 8 GM Inhaler INH PRN (15:25)
[2021-09-23] MEDS ORDERED: Carboxymethylcellulose Sodium 0.5% Ophth Soln 15 ML Bottle EYEBOTH PRN (15:25)
[2021-09-23] MEDS: tiZANidine 4 MG Tab PO SCH ×3 (16:08→22:40)
[2021-09-23] MEDS: Acetaminophen/HYDROcodone 325-10 MG Tab PO PRN ×2 (16:08→22:11)
[2021-09-23] MEDS: Cyclobenzaprine 10 MG Tab PO PRN (19:40)
[2021-09-23] MEDS: Formoterol/Mometasone 200-5 MCG 8.8 GM Inhaler IH SCH (22:10)
[2021-09-23] MEDS: Clopidogrel 75 MG Tab PO SCH (22:11)
[2021-09-23] MEDS: Oxybutynin 5 MG Tab.ER PO SCH (22:12)
[2021-09-23] MEDS: Hydrochlorothiazide 25 MG Tab PO SCH (22:22)
[2021-09-23] MEDS: metFORMIN 500 MG Tab.ER PO SCH (22:22)
[2021-09-23] MEDS: atorvaSTATin 40 MG Tab PO SCH (22:23)
[2021-09-23] MEDS: Montelukast 10 MG Tab PO SCH (22:23)
[2021-09-24] MEDS: Pantoprazole 40 MG Tab.CR PO SCH ×2 (06:06→06:31)
[2021-09-24] MEDS: Levothyroxine 25 MCG Tab PO SCH ×2 (06:06→06:31)
[2021-09-24] MEDS: tiZANidine 4 MG Tab PO SCH ×4 (06:06→20:55)
[2021-09-24 07:57] LABS: ANION GAP 7.6 mmol/L (5-15)
[2021-09-24] MEDS: Aspirin 81 MG Tab.Chew PO SCH (08:15)
[2021-09-24] MEDS: Ascorbic Acid 500 MG Tab PO SCH (08:16)
[2021-09-24] MEDS: Zinc (Zinc Gluconate) 50 MG Tab PO SCH (08:16)
[2021-09-24] MEDS: Cholecalciferol (Vitamin D3) 25 MCG Tab PO SCH (08:16)
[2021-09-24] MEDS: Cyanocobalamin (Vitamin B12) 500 MCG Tab PO SCH (08:17)
[2021-09-24] MEDS: Lactobacillus Rhamnosus GG (Probiotic) Cap PO SCH (08:17)
[2021-09-24] MEDS: Gabapentin 100 MG Cap PO SCH (08:17)
[2021-09-24] MEDS: metFORMIN 500 MG Tab.ER PO SCH (08:18)
[2021-09-24] MEDS: Fluticasone NASAL Spray 16 GM Bottle NASBOTH SCH (08:27)
[2021-09-24] MEDS: Formoterol/Mometasone 200-5 MCG 8.8 GM Inhaler IH SCH ×2 (08:27→20:56)
[2021-09-24] MEDS: Losartan 50 MG Tab PO SCH (09:15)
[2021-09-24] MEDS: Tiotropium Bromide 4 GM Inhalation Spray (2.5mcg/1 dose; 10 doses) INH SCH (09:16)
[2021-09-24] MEDS: Hydrochlorothiazide 12.5 MG Cap PO SCH (09:16)
[2021-09-24] MEDS: amLODIPine 5 MG Tab PO SCH (09:16)
[2021-09-24] MEDS: Magnesium Oxide 500 MG Tab PO SCH (09:28)
[2021-09-24] MEDS: Acetaminophen/HYDROcodone 325-10 MG Tab PO PRN ×2 (12:46→20:52)
[2021-09-24] MEDS: Clopidogrel 75 MG Tab PO SCH (20:54)
[2021-09-24] MEDS: atorvaSTATin 40 MG Tab PO SCH (20:54)
[2021-09-24] MEDS: Montelukast 10 MG Tab PO SCH (20:55)
[2021-09-24] MEDS: Oxybutynin 5 MG Tab.ER PO SCH (20:55)
[2021-09-24] MEDS: Hydrochlorothiazide 25 MG Tab PO SCH (20:55)
[2021-09-25] MEDS: tiZANidine 4 MG Tab PO SCH ×6 (00:39→23:04)
[2021-09-25] MEDS: Cyclobenzaprine 10 MG Tab PO PRN (02:00)
[2021-09-25] MEDS: Acetaminophen/HYDROcodone 325-10 MG Tab PO PRN ×2 (04:24→21:13)
[2021-09-25] MEDS: Levothyroxine 25 MCG Tab PO SCH ×2 (06:24→06:31)
[2021-09-25] MEDS: Pantoprazole 40 MG Tab.CR PO SCH ×2 (06:24→06:31)
[2021-09-25] MEDS: Cyanocobalamin (Vitamin B12) 500 MCG Tab PO SCH (08:24)
[2021-09-25] MEDS: Magnesium Oxide 500 MG Tab PO SCH (08:24)
[2021-09-25] MEDS: Cholecalciferol (Vitamin D3) 25 MCG Tab PO SCH (08:25)
[2021-09-25] MEDS: Zinc (Zinc Gluconate) 50 MG Tab PO SCH (08:25)
[2021-09-25] MEDS: Furosemide 20 MG Tab PO PRN (08:25)
[2021-09-25] MEDS: Aspirin 81 MG Tab.Chew PO SCH (08:25)
[2021-09-25] MEDS: Gabapentin 100 MG Cap PO SCH (08:25)
[2021-09-25] MEDS: metFORMIN 500 MG Tab.ER PO SCH (08:25)
[2021-09-25] MEDS: Hydrochlorothiazide 12.5 MG Cap PO SCH (08:26)
[2021-09-25] MEDS: Ascorbic Acid 500 MG Tab PO SCH (08:26)
[2021-09-25] MEDS: Lactobacillus Rhamnosus GG (Probiotic) Cap PO SCH (08:27)
[2021-09-25] MEDS: Tiotropium Bromide 4 GM Inhalation Spray (2.5mcg/1 dose; 10 doses) INH SCH (08:31)
[2021-09-25] MEDS: Fluticasone NASAL Spray 16 GM Bottle NASBOTH SCH (08:31)
[2021-09-25] MEDS: Formoterol/Mometasone 200-5 MCG 8.8 GM Inhaler IH SCH ×2 (08:31→21:15)
[2021-09-25] MEDS: Losartan 50 MG Tab PO SCH (08:37)
[2021-09-25] MEDS: amLODIPine 5 MG Tab PO SCH (08:37)
[2021-09-25] MEDS: Hydrochlorothiazide 25 MG Tab PO SCH (21:14)
[2021-09-25] MEDS: Montelukast 10 MG Tab PO SCH (21:14)
[2021-09-25] MEDS: Clopidogrel 75 MG Tab PO SCH (21:14)
[2021-09-25] MEDS: atorvaSTATin 40 MG Tab PO SCH (21:14)
[2021-09-25] MEDS: Oxybutynin 5 MG Tab.ER PO SCH (21:14)
[2021-09-26] MEDS: Acetaminophen/HYDROcodone 325-10 MG Tab PO PRN (04:15)
[2021-09-26] MEDS: Levothyroxine 25 MCG Tab PO SCH ×2 (06:04→06:34)
[2021-09-26] MEDS: Pantoprazole 40 MG Tab.CR PO SCH ×2 (06:04→06:34)
[2021-09-26] MEDS: tiZANidine 4 MG Tab PO SCH ×4 (06:04→21:48)
[2021-09-26] MEDS: amLODIPine 5 MG Tab PO SCH (08:02)
[2021-09-26] MEDS: Cholecalciferol (Vitamin D3) 25 MCG Tab PO SCH (08:03)
[2021-09-26] MEDS: Ascorbic Acid 500 MG Tab PO SCH (08:03)
[2021-09-26] MEDS: Losartan 50 MG Tab PO SCH (08:03)
[2021-09-26] MEDS: Cyanocobalamin (Vitamin B12) 500 MCG Tab PO SCH (08:03)
[2021-09-26] MEDS: Magnesium Oxide 500 MG Tab PO SCH (08:03)
[2021-09-26] MEDS: Gabapentin 100 MG Cap PO SCH (08:03)
[2021-09-26] MEDS: metFORMIN 500 MG Tab.ER PO SCH (08:03)
[2021-09-26] MEDS: Aspirin 81 MG Tab.Chew PO SCH (08:04)
[2021-09-26] MEDS: Fluticasone NASAL Spray 16 GM Bottle NASBOTH SCH (08:04)
[2021-09-26] MEDS: Zinc (Zinc Gluconate) 50 MG Tab PO SCH (08:04)
[2021-09-26] MEDS: Lactobacillus Rhamnosus GG (Probiotic) Cap PO SCH (08:04)
[2021-09-26] MEDS: Hydrochlorothiazide 12.5 MG Cap PO SCH (08:04)
[2021-09-26] MEDS: Tiotropium Bromide 4 GM Inhalation Spray (2.5mcg/1 dose; 10 doses) INH SCH (08:59)
[2021-09-26] MEDS: Formoterol/Mometasone 200-5 MCG 8.8 GM Inhaler IH SCH ×2 (08:59→21:47)
[2021-09-26] MEDS: Furosemide 20 MG Tab PO PRN (10:37)
[2021-09-26] MEDS: Oxybutynin 5 MG Tab.ER PO SCH (21:46)
[2021-09-26] MEDS: Clopidogrel 75 MG Tab PO SCH (21:46)
[2021-09-26] MEDS: Montelukast 10 MG Tab PO SCH (21:46)
[2021-09-26] MEDS: Hydrochlorothiazide 25 MG Tab PO SCH (21:46)
[2021-09-26] MEDS: atorvaSTATin 40 MG Tab PO SCH (21:46)
[2021-09-27] MEDS: Acetaminophen/HYDROcodone 325-10 MG Tab PO PRN ×4 (03:45→21:10)
[2021-09-27] MEDS: tiZANidine 4 MG Tab PO SCH ×5 (06:00→23:43)
[2021-09-27] MEDS: Levothyroxine 25 MCG Tab PO SCH (06:31)
[2021-09-27] MEDS: Pantoprazole 40 MG Tab.CR PO SCH (06:31)
[2021-09-27] MEDS: Aspirin 81 MG Tab.Chew PO SCH (08:36)
[2021-09-27] MEDS: Zinc (Zinc Gluconate) 50 MG Tab PO SCH (08:36)
[2021-09-27] MEDS: Gabapentin 100 MG Cap PO SCH (08:39)
[2021-09-27] MEDS: Losartan 50 MG Tab PO SCH (08:39)
[2021-09-27] MEDS: Lactobacillus Rhamnosus GG (Probiotic) Cap PO SCH (08:40)
[2021-09-27] MEDS: amLODIPine 5 MG Tab PO SCH (08:41)
[2021-09-27] MEDS: Cyanocobalamin (Vitamin B12) 500 MCG Tab PO SCH (08:41)
[2021-09-27] MEDS: Hydrochlorothiazide 12.5 MG Cap PO SCH (08:42)
[2021-09-27] MEDS: Magnesium Oxide 500 MG Tab PO SCH (08:43)
[2021-09-27] MEDS: metFORMIN 500 MG Tab.ER PO SCH (08:43)
[2021-09-27] MEDS: Cholecalciferol (Vitamin D3) 25 MCG Tab PO SCH (08:43)
[2021-09-27] MEDS: Ascorbic Acid 500 MG Tab PO SCH (08:44)
[2021-09-27] MEDS: Formoterol/Mometasone 200-5 MCG 8.8 GM Inhaler IH SCH ×2 (08:46→21:04)
[2021-09-27] MEDS: Tiotropium Bromide 4 GM Inhalation Spray (2.5mcg/1 dose; 10 doses) INH SCH (08:46)
[2021-09-27] MEDS: Fluticasone NASAL Spray 16 GM Bottle NASBOTH SCH (08:46)
[2021-09-27] MEDS: Lidocaine 2% Jelly 5 ML Tube TOP PRN ×2 (11:38→21:20)
[2021-09-27] MEDS: Clopidogrel 75 MG Tab PO SCH (21:03)
[2021-09-27] MEDS: Montelukast 10 MG Tab PO SCH (21:03)
[2021-09-27] MEDS: atorvaSTATin 40 MG Tab PO SCH (21:03)
[2021-09-27] MEDS: Oxybutynin 5 MG Tab.ER PO SCH (21:04)
[2021-09-27] MEDS: Hydrochlorothiazide 25 MG Tab PO SCH (21:04)
[2021-09-28] MEDS: Cyclobenzaprine 10 MG Tab PO PRN (01:59)
[2021-09-28] MEDS: Lidocaine 2% Jelly 5 ML Tube TOP PRN ×2 (02:01→09:08)
[2021-09-28] MEDS: tiZANidine 4 MG Tab PO SCH ×4 (06:02→23:07)
[2021-09-28] MEDS: Pantoprazole 40 MG Tab.CR PO SCH ×2 (06:02→06:30)
[2021-09-28] MEDS: Levothyroxine 25 MCG Tab PO SCH ×2 (06:02→06:30)
[2021-09-28] MEDS: Zinc (Zinc Gluconate) 50 MG Tab PO SCH (08:17)
[2021-09-28] MEDS: Lactobacillus Rhamnosus GG (Probiotic) Cap PO SCH (08:17)
[2021-09-28] MEDS: Gabapentin 100 MG Cap PO SCH (08:18)
[2021-09-28] MEDS: Aspirin 81 MG Tab.Chew PO SCH (08:18)
[2021-09-28] MEDS: Losartan 50 MG Tab PO SCH (08:18)
[2021-09-28] MEDS: metFORMIN 500 MG Tab.ER PO SCH (08:19)
[2021-09-28] MEDS: Cyanocobalamin (Vitamin B12) 500 MCG Tab PO SCH (08:19)
[2021-09-28] MEDS: Cholecalciferol (Vitamin D3) 25 MCG Tab PO SCH (08:19)
[2021-09-28] MEDS: Magnesium Oxide 500 MG Tab PO SCH (08:20)
[2021-09-28] MEDS: amLODIPine 5 MG Tab PO SCH (08:20)
[2021-09-28] MEDS: Hydrochlorothiazide 12.5 MG Cap PO SCH (08:21)
[2021-09-28] MEDS: Ascorbic Acid 500 MG Tab PO SCH (08:21)
[2021-09-28] MEDS: Formoterol/Mometasone 200-5 MCG 8.8 GM Inhaler IH SCH ×2 (08:30→21:09)
[2021-09-28] MEDS: Fluticasone NASAL Spray 16 GM Bottle NASBOTH SCH (08:30)
[2021-09-28] MEDS: Tiotropium Bromide 4 GM Inhalation Spray (2.5mcg/1 dose; 10 doses) INH SCH (08:30)
[2021-09-28] MEDS: Furosemide 20 MG Tab PO PRN (11:07)
[2021-09-28] MEDS: Montelukast 10 MG Tab PO SCH (21:09)
[2021-09-28] MEDS: Acetaminophen/HYDROcodone 325-10 MG Tab PO PRN (21:09)
[2021-09-28] MEDS: Hydrochlorothiazide 25 MG Tab PO SCH (21:09)
[2021-09-28] MEDS: Oxybutynin 5 MG Tab.ER PO SCH (21:09)
[2021-09-28] MEDS: Clopidogrel 75 MG Tab PO SCH (21:09)
[2021-09-28] MEDS: atorvaSTATin 40 MG Tab PO SCH (21:09)
[2021-09-29] MEDS: Acetaminophen/HYDROcodone 325-10 MG Tab PO PRN (05:44)
[2021-09-29] MEDS: Levothyroxine 25 MCG Tab PO SCH ×2 (05:45→06:32)
[2021-09-29] MEDS: Pantoprazole 40 MG Tab.CR PO SCH ×2 (05:45→06:32)
[2021-09-29] MEDS: tiZANidine 4 MG Tab PO SCH ×3 (05:45→15:54)
[2021-09-29] MEDS ORDERED: Furosemide 40 MG Tab PO ONE (09:06)
[2021-09-29] MEDS: Aspirin 81 MG Tab.Chew PO SCH (09:12)
[2021-09-29] MEDS: metFORMIN 500 MG Tab.ER PO SCH (09:13)
[2021-09-29] MEDS: Losartan 50 MG Tab PO SCH (09:13)
[2021-09-29] MEDS: Lactobacillus Rhamnosus GG (Probiotic) Cap PO SCH (09:13)
[2021-09-29] MEDS: Formoterol/Mometasone 200-5 MCG 8.8 GM Inhaler IH SCH ×2 (09:13→21:32)
[2021-09-29] MEDS: Fluticasone NASAL Spray 16 GM Bottle NASBOTH SCH (09:13)
[2021-09-29] MEDS: Tiotropium Bromide 4 GM Inhalation Spray (2.5mcg/1 dose; 10 doses) INH SCH (09:14)
[2021-09-29] MEDS: Zinc (Zinc Gluconate) 50 MG Tab PO SCH (09:14)
[2021-09-29] MEDS: Hydrochlorothiazide 12.5 MG Cap PO SCH (09:14)
[2021-09-29] MEDS: Gabapentin 100 MG Cap PO SCH (09:14)
[2021-09-29] MEDS: Cholecalciferol (Vitamin D3) 25 MCG Tab PO SCH (09:14)
[2021-09-29] MEDS: Cyanocobalamin (Vitamin B12) 500 MCG Tab PO SCH (09:14)
[2021-09-29] MEDS: Magnesium Oxide 500 MG Tab PO SCH (09:14)
[2021-09-29] MEDS: Ascorbic Acid 500 MG Tab PO SCH (09:14)
[2021-09-29] MEDS: amLODIPine 5 MG Tab PO SCH (09:15)
[2021-09-29] MEDS: Oxybutynin 5 MG Tab.ER PO SCH (21:32)
[2021-09-29] MEDS: Montelukast 10 MG Tab PO SCH (21:32)
[2021-09-29] MEDS: Clopidogrel 75 MG Tab PO SCH (21:32)
[2021-09-29] MEDS: Hydrochlorothiazide 25 MG Tab PO SCH (21:32)
[2021-09-29] MEDS: atorvaSTATin 40 MG Tab PO SCH (21:32)
[2021-09-30] MEDS: tiZANidine 4 MG Tab PO SCH ×2 (01:36→07:07)
[2021-09-30] MEDS: Cyclobenzaprine 10 MG Tab PO PRN (02:09)
[2021-09-30] MEDS: Formoterol/Mometasone 200-5 MCG 8.8 GM Inhaler IH SCH ×2 (06:41→08:00)
[2021-09-30] MEDS: Pantoprazole 40 MG Tab.CR PO SCH (07:05)
[2021-09-30] MEDS: Levothyroxine 25 MCG Tab PO SCH (07:05)
[2021-09-30] MEDS: Losartan 50 MG Tab PO SCH (08:22)
[2021-09-30] MEDS: Ascorbic Acid 500 MG Tab PO SCH (08:22)
[2021-09-30] MEDS: Aspirin 81 MG Tab.Chew PO SCH (08:22)
[2021-09-30] MEDS: Cyanocobalamin (Vitamin B12) 500 MCG Tab PO SCH (08:22)
[2021-09-30] MEDS: Magnesium Oxide 500 MG Tab PO SCH (08:23)
[2021-09-30] MEDS: Lactobacillus Rhamnosus GG (Probiotic) Cap PO SCH (08:23)
[2021-09-30] MEDS: metFORMIN 500 MG Tab.ER PO SCH (08:23)
[2021-09-30] MEDS: Hydrochlorothiazide 12.5 MG Cap PO SCH (08:23)
[2021-09-30] MEDS: Zinc (Zinc Gluconate) 50 MG Tab PO SCH (08:23)
[2021-09-30] MEDS: Gabapentin 100 MG Cap PO SCH (08:23)
[2021-09-30] MEDS: Cholecalciferol (Vitamin D3) 25 MCG Tab PO SCH (08:23)
[2021-09-30] MEDS: Fluticasone NASAL Spray 16 GM Bottle NASBOTH SCH (08:23)
[2021-09-30] MEDS: Tiotropium Bromide 4 GM Inhalation Spray (2.5mcg/1 dose; 10 doses) INH SCH (08:23)
[2021-09-30 08:24] VITALS: BP 156/53
[2021-09-30 08:56] VITALS: PULSE 63
== END 2021-09-30 13:00 | disposition home health service (06) | DRG 948 ==
LOC: KA.MS 13:42
PROVIDERS: ADMIT Internal Medicine; ATTEND Internal Medicine
DX: R53.1 Weakness (principal); G89.18 Other acute postprocedural pain; N32.81 Overactive bladder; I10 Essential (primary) hypertension; K21.9 Gastro-esophageal reflux disease without esophagitis; J44.9 Chronic obstructive pulmonary disease, unspecified; E03.9 Hypothyroidism, unspecified; E11.42 Type 2 diabetes mellitus with diabetic polyneuropathy; M62.838 Other muscle spasm; E53.8 Deficiency of other specified B group vitamins; R09.82 Postnasal drip; E78.5 Hyperlipidemia, unspecified; M54.9 Dorsalgia, unspecified; G89.29 Other chronic pain; Z96.652 Presence of left artificial knee joint; Z90.49 Acquired absence of other specified parts of digestive tract; Z88.0 Allergy status to penicillin; Z88.1 Allergy status to other antibiotic agents; Z88.5 Allergy status to narcotic agent; Z79.82 Long term (current) use of aspirin; Z79.890 Hormone replacement therapy; Z79.899 Other long term (current) drug therapy
CPT/HCPCS: 36415; 80048; 81001; 82270; 83735; 85025; 97110-GO; 97110-GP; 97161-GP; 97535-GO; A9270-GY

== ENCOUNTER 2021-10-23 15:09 | Emergency (ER) | payer MEDICARE ==
[2021-10-23 15:18] VITALS: BP 151/54; PULSE 61
[2021-10-23] MEDS: Oxymetazoline 0.05% Nasal Spray 15 ML Bottle NAS ONE (15:24)
== END 2021-10-23 16:30 | disposition home or self-care (01) ==
LOC: KA.ED 15:09
DX: R04.0 Epistaxis (principal); J44.9 Chronic obstructive pulmonary disease, unspecified; E03.9 Hypothyroidism, unspecified; I10 Essential (primary) hypertension; E11.9 Type 2 diabetes mellitus without complications; Z88.1 Allergy status to other antibiotic agents; Z88.8 Allergy status to other drugs, medicaments and biological substances; Z88.0 Allergy status to penicillin; Z88.5 Allergy status to narcotic agent; Z79.899 Other long term (current) drug therapy; Z79.82 Long term (current) use of aspirin; Z79.84 Long term (current) use of oral hypoglycemic drugs; Z90.49 Acquired absence of other specified parts of digestive tract
CPT/HCPCS: 30901; 36415; 85025; 99283; A9270

== ENCOUNTER 2022-02-01 10:53 | Inpatient (IN) | payer MEDICARE ==
[2022-02-01 11:39] LABS: ANION GAP 9.9 mmol/L (5-15)
[2022-02-01] MEDS ORDERED: Aspirin 325 MG Tab.EC ONE (11:46)
[2022-02-01] MEDS ORDERED: Aspirin 325 MG Tab.EC PO ONE (11:51)
[2022-02-01] MEDS: Levofloxacin/Dextrose 5%-Water 750 MG in Premix Bag 1 BAG IV SCH (15:23)
[2022-02-01] MEDS: Sodium Chloride 0.9% 250 ML IV SCH (15:29)
[2022-02-01] MEDS ORDERED: Carboxymethylcellulose Sodium 0.5% Ophth Soln 15 ML Bottle EYEBOTH PRN (17:41)
[2022-02-01] MEDS ORDERED: Albuterol 0.083% 2.5 MG/3 ML Neb Soln INH SCH (17:45)
[2022-02-01] MEDS: Formoterol/Mometasone 200-5 MCG 8.8 GM Inhaler IH SCH ×2 (18:17→20:08)
[2022-02-01] MEDS: Magnesium Oxide 500 MG Tab PO SCH (19:08)
[2022-02-01] MEDS: Gabapentin 100 MG Cap PO SCH (20:08)
[2022-02-01] MEDS: Oxybutynin 5 MG Tab.ER PO SCH (20:09)
[2022-02-01] MEDS: Montelukast 10 MG Tab PO SCH (20:09)
[2022-02-01] MEDS: atorvaSTATin 40 MG Tab PO SCH (20:09)
[2022-02-01] MEDS ORDERED: Sodium Chloride 0.65% Nasal Spray 45 ML Bottle NAS PRN (20:16)
[2022-02-01] MEDS: Albuterol 0.083% 2.5 MG/3 ML Neb Soln INH SCH (23:31)
[2022-02-02] MEDS: Albuterol 0.083% 2.5 MG/3 ML Neb Soln INH SCH ×6 (02:37→22:34)
[2022-02-02] MEDS ORDERED: Levothyroxine 25 MCG Tab PO SCH (07:30)
[2022-02-02 07:49] LABS: ANION GAP 7.8 mmol/L (5-15)
[2022-02-02] MEDS: Losartan 50 MG Tab PO SCH (08:20)
[2022-02-02] MEDS: Clopidogrel 75 MG Tab PO SCH (08:20)
[2022-02-02] MEDS: Aspirin 81 MG Tab.EC PO SCH (08:20)
[2022-02-02] MEDS: Formoterol/Mometasone 200-5 MCG 8.8 GM Inhaler IH SCH ×2 (08:20→20:14)
[2022-02-02] MEDS ORDERED: Hydrochlorothiazide 25 MG Tab PO SCH (09:00)
[2022-02-02] MEDS ORDERED: Omeprazole 20 MG Cap.CR PO SCH (09:00)
[2022-02-02] MEDS ORDERED: Hydrochlorothiazide 25 MG Tab PO ONE (11:00)
[2022-02-02] MEDS: Cyanocobalamin (Vitamin B12) 500 MCG Tab PO SCH (11:20)
[2022-02-02] MEDS: Lactobacillus Rhamnosus GG (Probiotic) Cap PO SCH (11:20)
[2022-02-02] MEDS: Zinc (Zinc Gluconate) 50 MG Tab PO SCH (11:20)
[2022-02-02] MEDS: Levofloxacin/Dextrose 5%-Water 750 MG in Premix Bag 1 BAG IV SCH (12:35)
[2022-02-02] MEDS: Magnesium Oxide 500 MG Tab PO SCH (18:21)
[2022-02-02] MEDS: Montelukast 10 MG Tab PO SCH (20:13)
[2022-02-02] MEDS: atorvaSTATin 40 MG Tab PO SCH (20:13)
[2022-02-02] MEDS: Gabapentin 100 MG Cap PO SCH (20:13)
[2022-02-02] MEDS: Oxybutynin 5 MG Tab.ER PO SCH (20:14)
[2022-02-02] MEDS: Acetaminophen 325 MG Tab PO PRN (23:25)
[2022-02-03] MEDS: Albuterol 0.083% 2.5 MG/3 ML Neb Soln INH SCH ×6 (03:15→22:16)
[2022-02-03] MEDS: Levothyroxine 25 MCG Tab PO SCH (06:43)
[2022-02-03] MEDS: Omeprazole 20 MG Cap.CR PO SCH (06:43)
[2022-02-03] MEDS: Formoterol/Mometasone 200-5 MCG 8.8 GM Inhaler IH SCH ×2 (08:26→20:46)
[2022-02-03] MEDS: Clopidogrel 75 MG Tab PO SCH (08:27)
[2022-02-03] MEDS: Hydrochlorothiazide 25 MG Tab PO SCH (08:27)
[2022-02-03] MEDS: Losartan 50 MG Tab PO SCH (08:27)
[2022-02-03] MEDS: Aspirin 81 MG Tab.EC PO SCH (08:27)
[2022-02-03] MEDS: Lactobacillus Rhamnosus GG (Probiotic) Cap PO SCH (12:22)
[2022-02-03] MEDS: Benzonatate 100 MG Cap PO PRN (12:22)
[2022-02-03] MEDS: Cyanocobalamin (Vitamin B12) 500 MCG Tab PO SCH (12:22)
[2022-02-03] MEDS: Levofloxacin/Dextrose 5%-Water 750 MG in Premix Bag 1 BAG IV SCH (12:22)
[2022-02-03] MEDS: Zinc (Zinc Gluconate) 50 MG Tab PO SCH (12:22)
[2022-02-03] MEDS: Magnesium Oxide 500 MG Tab PO SCH (17:59)
[2022-02-03] MEDS: Oxybutynin 5 MG Tab.ER PO SCH (20:46)
[2022-02-03] MEDS: Gabapentin 100 MG Cap PO SCH (20:47)
[2022-02-03] MEDS: atorvaSTATin 40 MG Tab PO SCH (20:47)
[2022-02-03] MEDS: Montelukast 10 MG Tab PO SCH (20:47)
[2022-02-04] MEDS: Acetaminophen 325 MG Tab PO PRN (01:01)
[2022-02-04] MEDS: Albuterol 0.083% 2.5 MG/3 ML Neb Soln INH SCH ×5 (02:38→22:53)
[2022-02-04] MEDS: Levothyroxine 25 MCG Tab PO SCH (06:10)
[2022-02-04] MEDS: Acetaminophen/HYDROcodone 325-10 MG Tab PO PRN ×2 (06:11→23:01)
[2022-02-04] MEDS: Omeprazole 20 MG Cap.CR PO SCH (06:32)
[2022-02-04] MEDS: Aspirin 81 MG Tab.EC PO SCH (08:14)
[2022-02-04] MEDS: Losartan 50 MG Tab PO SCH (08:14)
[2022-02-04] MEDS: Clopidogrel 75 MG Tab PO SCH (08:14)
[2022-02-04] MEDS: Hydrochlorothiazide 25 MG Tab PO SCH (08:14)
[2022-02-04] MEDS: Formoterol/Mometasone 200-5 MCG 8.8 GM Inhaler IH SCH ×2 (09:49→20:10)
[2022-02-04] MEDS: Diclofenac Sodium 1% Gel 100 GM Tube TOP PRN (10:37)
[2022-02-04] MEDS: Lactobacillus Rhamnosus GG (Probiotic) Cap PO SCH (12:19)
[2022-02-04] MEDS: Cyanocobalamin (Vitamin B12) 500 MCG Tab PO SCH (12:19)
[2022-02-04] MEDS: Zinc (Zinc Gluconate) 50 MG Tab PO SCH (12:20)
[2022-02-04] MEDS: Levofloxacin/Dextrose 5%-Water 750 MG in Premix Bag 1 BAG IV SCH (12:48)
[2022-02-04] MEDS: Sodium Chloride 0.9% 250 ML IV SCH (12:49)
[2022-02-04] MEDS ORDERED: Enoxaparin 150 MG/1 ML Syringe SUBCUT SCH (15:45)
[2022-02-04] MEDS: Enoxaparin 30 MG/0.3 ML Syringe SUBCUT SCH (16:25)
[2022-02-04] MEDS: Enoxaparin 100 MG/1 ML Syringe SUBCUT SCH (16:25)
[2022-02-04] MEDS: Magnesium Oxide 500 MG Tab PO SCH (18:08)
[2022-02-04] MEDS: Oxybutynin 5 MG Tab.ER PO SCH (20:09)
[2022-02-04] MEDS: Gabapentin 100 MG Cap PO SCH (20:10)
[2022-02-04] MEDS: Montelukast 10 MG Tab PO SCH (20:10)
[2022-02-04] MEDS: atorvaSTATin 40 MG Tab PO SCH (20:10)
[2022-02-05] MEDS: Omeprazole 20 MG Cap.CR PO SCH ×2 (05:48→06:40)
[2022-02-05] MEDS: Levothyroxine 25 MCG Tab PO SCH ×2 (05:48→06:40)
[2022-02-05] MEDS: Albuterol 0.083% 2.5 MG/3 ML Neb Soln INH SCH ×4 (06:00→22:30)
[2022-02-05] MEDS: Hydrochlorothiazide 25 MG Tab PO SCH (09:03)
[2022-02-05] MEDS: Clopidogrel 75 MG Tab PO SCH (09:03)
[2022-02-05] MEDS: Aspirin 81 MG Tab.EC PO SCH (09:03)
[2022-02-05] MEDS: Losartan 50 MG Tab PO SCH (09:05)
[2022-02-05] MEDS: Formoterol/Mometasone 200-5 MCG 8.8 GM Inhaler IH SCH ×2 (09:07→20:03)
[2022-02-05] MEDS: Cyanocobalamin (Vitamin B12) 500 MCG Tab PO SCH (12:30)
[2022-02-05] MEDS: Levofloxacin/Dextrose 5%-Water 750 MG in Premix Bag 1 BAG IV SCH (12:30)
[2022-02-05] MEDS: Sodium Chloride 0.9% 250 ML IV SCH (12:30)
[2022-02-05] MEDS: Zinc (Zinc Gluconate) 50 MG Tab PO SCH (12:30)
[2022-02-05] MEDS: Lactobacillus Rhamnosus GG (Probiotic) Cap PO SCH (12:30)
[2022-02-05] MEDS: Acetaminophen 325 MG Tab PO PRN (14:26)
[2022-02-05] MEDS: Enoxaparin 30 MG/0.3 ML Syringe SUBCUT SCH (17:29)
[2022-02-05] MEDS: Enoxaparin 100 MG/1 ML Syringe SUBCUT SCH (17:29)
[2022-02-05] MEDS: Magnesium Oxide 500 MG Tab PO SCH (17:29)
[2022-02-05] MEDS: Montelukast 10 MG Tab PO SCH (20:02)
[2022-02-05] MEDS: Oxybutynin 5 MG Tab.ER PO SCH (20:03)
[2022-02-05] MEDS: Gabapentin 100 MG Cap PO SCH (20:03)
[2022-02-05] MEDS: atorvaSTATin 40 MG Tab PO SCH (20:03)
[2022-02-06] MEDS: Omeprazole 20 MG Cap.CR PO SCH ×2 (05:52→06:31)
[2022-02-06] MEDS: Levothyroxine 25 MCG Tab PO SCH ×2 (05:53→06:31)
[2022-02-06] MEDS: Albuterol 0.083% 2.5 MG/3 ML Neb Soln INH SCH ×4 (05:56→22:00)
[2022-02-06] MEDS: Clopidogrel 75 MG Tab PO SCH (08:49)
[2022-02-06] MEDS: Aspirin 81 MG Tab.EC PO SCH (08:49)
[2022-02-06] MEDS: Hydrochlorothiazide 25 MG Tab PO SCH (08:50)
[2022-02-06] MEDS: Losartan 50 MG Tab PO SCH (08:50)
[2022-02-06] MEDS: Formoterol/Mometasone 200-5 MCG 8.8 GM Inhaler IH SCH ×2 (08:51→20:04)
[2022-02-06] MEDS: Acetaminophen 325 MG Tab PO PRN ×2 (10:32→15:57)
[2022-02-06] MEDS: Diclofenac Sodium 1% Gel 100 GM Tube TOP PRN (10:36)
[2022-02-06] MEDS: Acetaminophen/HYDROcodone 325-10 MG Tab PO PRN (11:16)
[2022-02-06] MEDS: Lactobacillus Rhamnosus GG (Probiotic) Cap PO SCH (11:53)
[2022-02-06] MEDS: Cyanocobalamin (Vitamin B12) 500 MCG Tab PO SCH (11:53)
[2022-02-06] MEDS: Zinc (Zinc Gluconate) 50 MG Tab PO SCH (11:54)
[2022-02-06] MEDS: Gabapentin 100 MG Cap PO SCH ×2 (15:59→21:59)
[2022-02-06] MEDS: Levofloxacin/Dextrose 5%-Water 750 MG in Premix Bag 1 BAG IV SCH (16:30)
[2022-02-06] MEDS: Enoxaparin 30 MG/0.3 ML Syringe SUBCUT SCH (17:19)
[2022-02-06] MEDS: Magnesium Oxide 500 MG Tab PO SCH (17:19)
[2022-02-06] MEDS: Enoxaparin 100 MG/1 ML Syringe SUBCUT SCH (17:19)
[2022-02-06] MEDS: Oxybutynin 5 MG Tab.ER PO SCH (20:04)
[2022-02-06] MEDS: atorvaSTATin 40 MG Tab PO SCH (20:04)
[2022-02-06] MEDS: Montelukast 10 MG Tab PO SCH (20:04)
[2022-02-06] MEDS: Benzonatate 100 MG Cap PO PRN (22:57)
[2022-02-07] MEDS: Acetaminophen/HYDROcodone 325-10 MG Tab PO PRN ×3 (04:18→22:21)
[2022-02-07] MEDS: Albuterol 0.083% 2.5 MG/3 ML Neb Soln INH SCH ×4 (04:19→22:06)
[2022-02-07] MEDS: Levothyroxine 25 MCG Tab PO SCH ×2 (05:42→06:16)
[2022-02-07] MEDS: Omeprazole 20 MG Cap.CR PO SCH ×2 (05:42→06:34)
[2022-02-07] MEDS: Losartan 50 MG Tab PO SCH (09:04)
[2022-02-07] MEDS: Formoterol/Mometasone 200-5 MCG 8.8 GM Inhaler IH SCH ×2 (09:04→20:05)
[2022-02-07] MEDS: Gabapentin 100 MG Cap PO SCH ×2 (09:05→20:05)
[2022-02-07] MEDS: Clopidogrel 75 MG Tab PO SCH (09:05)
[2022-02-07] MEDS: Hydrochlorothiazide 25 MG Tab PO SCH (09:06)
[2022-02-07] MEDS: Diclofenac Sodium 1% Gel 100 GM Tube TOP PRN ×2 (09:06→20:06)
[2022-02-07] MEDS: Aspirin 81 MG Tab.EC PO SCH (09:06)
[2022-02-07] MEDS: Zinc (Zinc Gluconate) 50 MG Tab PO SCH (11:18)
[2022-02-07] MEDS: Lactobacillus Rhamnosus GG (Probiotic) Cap PO SCH (11:18)
[2022-02-07] MEDS: Cyanocobalamin (Vitamin B12) 500 MCG Tab PO SCH (11:19)
[2022-02-07] MEDS: Magnesium Oxide 500 MG Tab PO SCH (17:23)
[2022-02-07] MEDS: Enoxaparin 100 MG/1 ML Syringe SUBCUT SCH (17:23)
[2022-02-07] MEDS: Enoxaparin 30 MG/0.3 ML Syringe SUBCUT SCH (17:23)
[2022-02-07] MEDS: atorvaSTATin 40 MG Tab PO SCH (20:05)
[2022-02-07] MEDS: Oxybutynin 5 MG Tab.ER PO SCH (20:05)
[2022-02-07] MEDS: Montelukast 10 MG Tab PO SCH (20:05)
[2022-02-08] MEDS: Acetaminophen 325 MG Tab PO PRN (01:27)
[2022-02-08] MEDS: Diclofenac Sodium 1% Gel 100 GM Tube TOP PRN ×3 (01:31→20:03)
[2022-02-08] MEDS: Albuterol 0.083% 2.5 MG/3 ML Neb Soln INH SCH ×2 (04:45→11:18)
[2022-02-08] MEDS: Omeprazole 20 MG Cap.CR PO SCH ×2 (05:24→06:33)
[2022-02-08] MEDS: Levothyroxine 25 MCG Tab PO SCH ×2 (05:24→06:07)
[2022-02-08] MEDS: Acetaminophen/HYDROcodone 325-10 MG Tab PO PRN ×2 (08:35→14:15)
[2022-02-08] MEDS: Aspirin 81 MG Tab.EC PO SCH (08:35)
[2022-02-08] MEDS: Hydrochlorothiazide 25 MG Tab PO SCH (08:35)
[2022-02-08] MEDS: Gabapentin 100 MG Cap PO SCH ×2 (08:35→20:03)
[2022-02-08] MEDS: Formoterol/Mometasone 200-5 MCG 8.8 GM Inhaler IH SCH ×2 (08:36→20:03)
[2022-02-08] MEDS: Clopidogrel 75 MG Tab PO SCH (08:36)
[2022-02-08] MEDS: Losartan 50 MG Tab PO SCH (08:36)
[2022-02-08] MEDS: Lactobacillus Rhamnosus GG (Probiotic) Cap PO SCH (11:17)
[2022-02-08] MEDS: Zinc (Zinc Gluconate) 50 MG Tab PO SCH (11:17)
[2022-02-08] MEDS: Cyanocobalamin (Vitamin B12) 500 MCG Tab PO SCH (11:17)
[2022-02-08] MEDS ORDERED: Albuterol 0.083% 2.5 MG/3 ML Neb Soln INH PRN (12:21)
[2022-02-08] MEDS: Magnesium Oxide 500 MG Tab PO SCH (18:17)
[2022-02-08] MEDS: atorvaSTATin 40 MG Tab PO SCH (20:03)
[2022-02-08] MEDS: Montelukast 10 MG Tab PO SCH (20:03)
[2022-02-08] MEDS: Oxybutynin 5 MG Tab.ER PO SCH (20:03)
[2022-02-09] MEDS: Benzonatate 100 MG Cap PO PRN ×2 (02:16→22:32)
[2022-02-09] MEDS: Omeprazole 20 MG Cap.CR PO SCH ×2 (05:33→06:33)
[2022-02-09] MEDS: Levothyroxine 25 MCG Tab PO SCH ×2 (05:33→06:12)
[2022-02-09 07:41] LABS: ANION GAP 0.3 mmol/L (5-15)
[2022-02-09] MEDS: Losartan 50 MG Tab PO SCH (08:44)
[2022-02-09] MEDS: Hydrochlorothiazide 25 MG Tab PO SCH (08:45)
[2022-02-09] MEDS: Aspirin 81 MG Tab.EC PO SCH (08:45)
[2022-02-09] MEDS: Formoterol/Mometasone 200-5 MCG 8.8 GM Inhaler IH SCH ×2 (08:45→20:38)
[2022-02-09] MEDS: Clopidogrel 75 MG Tab PO SCH (08:45)
[2022-02-09] MEDS: Gabapentin 100 MG Cap PO SCH ×2 (08:45→20:38)
[2022-02-09] MEDS ORDERED: predniSONE 20 MG Tab PO ONE (08:52)
[2022-02-09] MEDS: Cyanocobalamin (Vitamin B12) 500 MCG Tab PO SCH (11:51)
[2022-02-09] MEDS: Zinc (Zinc Gluconate) 50 MG Tab PO SCH (11:51)
[2022-02-09] MEDS: Lactobacillus Rhamnosus GG (Probiotic) Cap PO SCH (12:29)
[2022-02-09] MEDS: Magnesium Oxide 500 MG Tab PO SCH (17:51)
[2022-02-09] MEDS: atorvaSTATin 40 MG Tab PO SCH (20:38)
[2022-02-09] MEDS: Montelukast 10 MG Tab PO SCH (20:38)
[2022-02-09] MEDS: Oxybutynin 5 MG Tab.ER PO SCH (20:38)
[2022-02-10] MEDS: Levothyroxine 25 MCG Tab PO SCH ×2 (05:28→06:29)
[2022-02-10] MEDS: Omeprazole 20 MG Cap.CR PO SCH ×2 (05:28→06:30)
[2022-02-10 09:01] VITALS: BP 137/44; PULSE 61
[2022-02-10] MEDS: Aspirin 81 MG Tab.EC PO SCH (09:01)
[2022-02-10] MEDS: Losartan 50 MG Tab PO SCH (09:01)
[2022-02-10] MEDS: Formoterol/Mometasone 200-5 MCG 8.8 GM Inhaler IH SCH (09:02)
[2022-02-10] MEDS: Clopidogrel 75 MG Tab PO SCH (09:02)
[2022-02-10] MEDS: Acetaminophen/HYDROcodone 325-10 MG Tab PO PRN (09:02)
[2022-02-10] MEDS: Gabapentin 100 MG Cap PO SCH (09:02)
[2022-02-10] MEDS: Hydrochlorothiazide 25 MG Tab PO SCH (09:02)
[2022-02-10] MEDS: Zinc (Zinc Gluconate) 50 MG Tab PO SCH (12:01)
[2022-02-10] MEDS: Lactobacillus Rhamnosus GG (Probiotic) Cap PO SCH (12:01)
[2022-02-10] MEDS: Cyanocobalamin (Vitamin B12) 500 MCG Tab PO SCH (12:01)
== END 2022-02-10 13:10 | disposition home or self-care (01) | DRG 194 ==
LOC: KA.ED 10:53 → KA.MS 12:34
PROVIDERS: ADMIT Physician Assistant; ATTEND Nurse Practitioner Family
DX: J18.9 Pneumonia, unspecified organism (principal); D72.829 Elevated white blood cell count, unspecified; R09.02 Hypoxemia; J44.0 Chronic obstructive pulmonary disease with (acute) lower respiratory infection; J44.9 Chronic obstructive pulmonary disease, unspecified; E11.9 Type 2 diabetes mellitus without complications; J44.1 Chronic obstructive pulmonary disease with (acute) exacerbation; E78.5 Hyperlipidemia, unspecified; E53.8 Deficiency of other specified B group vitamins; I10 Essential (primary) hypertension; Z66 Do not resuscitate; E03.9 Hypothyroidism, unspecified; E83.42 Hypomagnesemia; K21.9 Gastro-esophageal reflux disease without esophagitis; G47.33 Obstructive sleep apnea (adult) (pediatric); M79.671 Pain in right foot; Z88.8 Allergy status to other drugs, medicaments and biological substances; Z96.652 Presence of left artificial knee joint; Z99.81 Dependence on supplemental oxygen; Z88.1 Allergy status to other antibiotic agents; Z88.0 Allergy status to penicillin; Z88.5 Allergy status to narcotic agent; Z79.890 Hormone replacement therapy; Z79.899 Other long term (current) drug therapy; Z79.01 Long term (current) use of anticoagulants; Z79.84 Long term (current) use of oral hypoglycemic drugs; Z79.02 Long term (current) use of antithrombotics/antiplatelets; Z79.82 Long term (current) use of aspirin; Z79.51 Long term (current) use of inhaled steroids
CPT/HCPCS: 36415; 71046; 80048; 83880; 84484; 85025; 93005; 99285; A9270; 73630-RT; 84550; 85379; 93971; 94640; 97110-GP; 97161-GP; J1650; J1956; J7050; J7512; J7613-GY

== ENCOUNTER 2023-03-06 11:51 | Emergency (ER) | payer MEDICARE ==
[2023-03-06 12:38] LABS: ALANINE AMINOTRANSFERASE,ALT 14 U/L (14-63); ALBUMIN 3.44 g/dL (3.40-5.00); ALKALINE PHOSPHATASE 135 U/L (46-116); ANION GAP 8.8 mmol/L (5-15); ASPARTATE AMNIOTRANSFERASE,AST 13 U/L (15-37); BILIRUBIN TOTAL 0.3 mg/dL (0.2-1.0); BLOOD UREA NITROGEN,BUN 25 mg/dL (7-18); CALCIUM 9.2 mg/dL (8.7-10.3); CARBON DIOXIDE,CO2 34.9 mmol/L (21.0-32.0); CHLORIDE,CL 100 mmol/L (98-107); CREATININE 0.99 mg/dL (0.51-1.17); ESTIMATED GFR 59 mL/min (>=60); GLUCOSE RANDOM 107 mg/dL (70-140); POTASSIUM,K 3.7 mmol/L (3.5-5.1); PROTEIN TOTAL,TP 6.6 g/dL (6.4-8.2); SODIUM,NA 140 mmol/L (136-145)
[2023-03-06 12:39] LABS: BASOPHILS ABSOLUTE AUTO 0.04 10^3/uL (0.00-0.10); BASOPHILS PERCENT AUTO 0.5 % (0.0-1.0); EOSINOPHILS ABSOLUTE AUTO 0.15 10^3/uL (0.10-0.30); HEMATOCRIT 36.6 % (37.0-47.0); HEMOGLOBIN 10.9 g/dL (12.0-16.0); IMMATURE GRAN ABSOLUTE AUTO 0.01 10^3/uL (0.00-0.50); IMMATURE GRAN PERCENT AUTO 0.1 % (0.0-5.0); LYMPHOCYTES ABSOLUTE AUTO 1.37 10^3/uL (1.00-4.00); LYMPHOCYTES PERCENT AUTO 18.6 % (20.0-40.0); MEAN CORPUSCULAR HGB CONC 29.8 g/dL (32.0-36.0); MEAN CORPUSCULAR VOLUME 90.8 fL (82.0-92.0); MEAN PLATELET VOLUME 10.5 fL (7.4-10.4); MONOCYTES ABSOLUTE AUTO 0.61 10^3/uL (0.10-0.80); MONOCYTES PERCENT AUTO 8.3 % (2.0-8.0); NEUTROPHILS PERCENT AUTO 70.5 % (50.0-70.0); PLATELET COUNT,PLT 243 10^3/uL (150-400); RED BLOOD CELL COUNT 4.03 10^6/uL (3.80-5.50); WHITE BLOOD CELL COUNT,WBC 7.38 10^3/uL (5.00-10.00)
[2023-03-06 13:52] VITALS: BP 139/50; PULSE 56
== END 2023-03-06 13:26 | disposition home or self-care (01) ==
LOC: KA.ED 11:51
DX: S00.03XA Contusion of scalp, initial encounter (principal); J44.9 Chronic obstructive pulmonary disease, unspecified; I10 Essential (primary) hypertension; E11.9 Type 2 diabetes mellitus without complications; E03.9 Hypothyroidism, unspecified; E66.9 Obesity, unspecified; Z79.84 Long term (current) use of oral hypoglycemic drugs; Z79.02 Long term (current) use of antithrombotics/antiplatelets; Z79.899 Other long term (current) drug therapy; Z88.0 Allergy status to penicillin; Z88.1 Allergy status to other antibiotic agents; Z88.5 Allergy status to narcotic agent; Z68.35 Body mass index [BMI] 35.0-35.9, adult; W01.198A Fall on same level from slipping, tripping and stumbling with subsequent striking against other object, initial encounter; Y92.009 Unspecified place in unspecified non-institutional (private) residence as the place of occurrence of the external cause
CPT/HCPCS: 36415; 70450; 71045; 72125; 72170; 80053; 85025; 99284; Q3014

== ENCOUNTER 2024-05-08 13:50 | Emergency (ER) | payer MEDICARE ==
[2024-05-08] MEDS ORDERED: Sodium Chloride 0.9% 10 ML Syringe FLUSH PRN (14:04)
[2024-05-08 14:21] LABS: BASOPHILS ABSOLUTE AUTO 0.04 10^3/uL (0.00-0.10); BASOPHILS PERCENT AUTO 0.5 % (0.0-1.0); EOSINOPHILS ABSOLUTE AUTO 0.36 10^3/uL (0.10-0.30); EOSINOPHILS PERCENT AUTO 4.4 % (1.0-3.0); HEMATOCRIT 34.8 % (37.0-47.0); HEMOGLOBIN 10.6 g/dL (12.0-16.0); IMMATURE GRAN ABSOLUTE AUTO 0.01 10^3/uL (0.00-0.04); IMMATURE GRAN PERCENT AUTO 0.1 % (0.0-0.4); LYMPHOCYTES ABSOLUTE AUTO 1.28 10^3/uL (1.00-4.00); LYMPHOCYTES PERCENT AUTO 15.7 % (20.0-40.0); MEAN CORPUSCULAR HEMOGLOBIN 27.4 pg (27.0-31.0); MEAN CORPUSCULAR HGB CONC 30.5 g/dL (32.0-36.0); MEAN CORPUSCULAR VOLUME 89.9 fL (82.0-92.0); MEAN PLATELET VOLUME 10.9 fL (7.4-10.4); MONOCYTES ABSOLUTE AUTO 0.55 10^3/uL (0.10-0.80); MONOCYTES PERCENT AUTO 6.8 % (2.0-8.0); NEUTROPHILS ABSOLUTE AUTO 5.89 10^3/uL (2.50-7.00); NEUTROPHILS PERCENT AUTO 72.5 % (50.0-70.0); PLATELET COUNT,PLT 261 10^3/uL (150-400); RED BLOOD CELL COUNT 3.87 10^6/uL (3.80-5.50); RED CELL DISTRIBUTION WIDTH 13.3 % (11.5-14.5); WHITE BLOOD CELL COUNT,WBC 8.13 10^3/uL (5.00-10.00)
[2024-05-08 14:39] LABS: B-TYPE NATRIURETIC PEPTIDE,BNP 57 pg/mL (0-100)
[2024-05-08 14:41] LABS: ALANINE AMINOTRANSFERASE,ALT 14 U/L (14-63); ALBUMIN 3.25 g/dL (3.40-5.00); ALKALINE PHOSPHATASE 150 U/L (46-116); ANION GAP 9.8 mmol/L (5-15); ASPARTATE AMNIOTRANSFERASE,AST 11 U/L (15-37); BILIRUBIN TOTAL 0.5 mg/dL (0.2-1.0); BLOOD UREA NITROGEN,BUN 18 mg/dL (7-18); C-REACTIVE PROTEIN < 0.50 mg/dL (0.00-0.50); CALCIUM 9.9 mg/dL (8.7-10.3); CARBON DIOXIDE,CO2 33.9 mmol/L (21.0-32.0); CHLORIDE,CL 101 mmol/L (98-107); CREATININE 0.84 mg/dL (0.51-1.17); ESTIMATED GFR 71 mL/min (>=60); GLUCOSE RANDOM 171 mg/dL (70-140); POTASSIUM,K 3.7 mmol/L (3.5-5.1); PROTEIN TOTAL,TP 6.7 g/dL (6.4-8.2); SODIUM,NA 141 mmol/L (136-145)
[2024-05-08] MEDS: Iopamidol 755 Mg/ML 100 ML Bottle IV ONE (15:53)
[2024-05-08] MEDS: Sodium Chloride 0.9% 100 ML IV SCH (15:53)
[2024-05-08 17:01] VITALS: BP 144/64; PULSE 79
== END 2024-05-08 17:15 | disposition home or self-care (01) ==
LOC: KA.ED 13:50
DX: R07.9 Chest pain, unspecified (principal); K43.9 Ventral hernia without obstruction or gangrene; R60.0 Localized edema; R91.1 Solitary pulmonary nodule; I10 Essential (primary) hypertension; E78.00 Pure hypercholesterolemia, unspecified; J44.9 Chronic obstructive pulmonary disease, unspecified; E11.9 Type 2 diabetes mellitus without complications; E03.9 Hypothyroidism, unspecified; E66.9 Obesity, unspecified; Z68.33 Body mass index [BMI] 33.0-33.9, adult; Z90.49 Acquired absence of other specified parts of digestive tract; Z96.659 Presence of unspecified artificial knee joint; Z88.0 Allergy status to penicillin; Z88.5 Allergy status to narcotic agent; Z88.1 Allergy status to other antibiotic agents; Z88.8 Allergy status to other drugs, medicaments and biological substances; Z79.82 Long term (current) use of aspirin; Z79.84 Long term (current) use of oral hypoglycemic drugs; Z79.890 Hormone replacement therapy; Z79.899 Other long term (current) drug therapy
CPT/HCPCS: 36415; 71045; 71275; 80053; 83880; 84484; 85025; 85379; 86140; 93005; 93010; 99284; 99285; Q9967